=== PATIENT | male | born 1935 | race African-American/Black ===

== ENCOUNTER 2018-04-24 11:55 | Inpatient (IN) | payer MEDICARE ==
[~2018-04-24] VITALS: Ht 170.2 cm; Wt 51.8 kg
[2018-04-24 14:52] LABS: BASOPHILS % 1.5 % (0.0-2.0); HEMATOCRIT. 33.1 % (42.0-52.0); HEMOGLOBIN. 10.6 g/dL (14.0-18.0); LYMPHOCYTES % 17.8 % (20.0-50.0); MEAN CORPUSCULAR HEMOGLOBIN 24.5 pg (28.0-32.0); MEAN CORPUSCULAR VOLUME 76.8 fL (80.0-94.0); MEAN PLATELET VOLUME 8.4 fl (7.4-10.4); MONOCYTES % 6.2 % (2.0-8.0); NEUTROPHILS % 73.5 % (40.0-76.0); PLATELET 404 x1000/uL (130-400); RED CELL DISTRIBUTION WIDTH 14.7 % (11.6-14.6)
[2018-04-24 14:57] LABS: CHLORIDE 111 mEq/L (98-107)
[2018-04-24] MEDS ORDERED: SODIUM CHLORIDE 0.9% 500 ML IV ONE (15:02)
[2018-04-24] MEDS ORDERED: ACETAMINOPHEN 325MG TABLET PO PRN (16:45)
[2018-04-24] MEDS ORDERED: IPRATROPIUM/ALBUTEROL 0.5-3(2.5)MG/3ML NEB INH PRN (16:45)
[2018-04-24] MEDS ORDERED: ONDANSETRON HCL 4MG/2ML INJ IV PRN (16:45)
[2018-04-24] MEDS ORDERED: ENOXAPARIN 40MG/0.4ML SYR SUBCUT SCH (16:45)
[2018-04-24] MEDS ORDERED: MAGNESIUM/ALUMINUM HYDROXIDE/SIMETHICONE 30ML UDC PO PRN (16:45)
[2018-04-24] MEDS ORDERED: DOCUSATE SODIUM 100MG CAPSULE PO PRN (16:45)
[2018-04-24] MEDS ORDERED: TRAMADOL 50MG TABLET PO PRN (16:45)
[2018-04-24] MEDS ORDERED: GUAIFENESIN 200MG/10ML SUGAR FREE UDC PO PRN (16:45)
[2018-04-24] MEDS ORDERED: NITROGLYCERIN 0.4MG TABLET SL SL PRN (16:45)
[2018-04-24 18:17] LABS: VITAMIN B12 SERUM 590 pg/mL (211-911)
[2018-04-24] MEDS: SPIRONOLACTONE 25MG TABLET PO SCH (20:11)
[2018-04-24] MEDS: FUROSEMIDE 40MG/4ML VIAL IVP SCH (20:11)
[2018-04-24] MEDS: CLONIDINE 0.1MG TABLET PO PRN (20:12)
[2018-04-24] MEDS: LISINOPRIL 20MG TABLET PO SCH (20:12)
[2018-04-24] MEDS: FAMOTIDINE 20MG TABLET PO SCH (20:12)
[2018-04-24 22:25] LABS: CREATINE KINASE 56 IU/L (39-308)
[2018-04-24 22:26] LABS: CREATINE KINASE MB FRACTION < 1.0 ng/mL (0.5-3.6)
[2018-04-24 23:45] LABS: *AMPHETAMINES SCREEN URINE NEGATIVE (NEGATIVE); *BARBITURATES SCREEN URINE NEGATIVE (NEGATIVE); *BENZODIAZEPINES SCREEN URINE NEGATIVE (NEGATIVE); *COCAINE SCREEN URINE NEGATIVE (NEGATIVE); METHADONE URINE SCREEN NEGATIVE (NEGATIVE); OPIATES URINE SCREEN NEGATIVE (NEGATIVE)
[2018-04-24 23:46] LABS: CANNABINOID URINE SCREEN NEGATIVE (NEGATIVE); PHENCYCLIDINE URINE SCREEN NEGATIVE (NEGATIVE)
[2018-04-25] MEDS ORDERED: ZOLPIDEM TARTRATE 5MG TABLET PO PRN (01:03)
[2018-04-25] MEDS: CLONIDINE 0.1MG TABLET PO PRN ×3 (03:48→20:34)
[2018-04-25 07:37] LABS: CREATINE KINASE MB FRACTION 1.6 ng/mL (0.5-3.6)
[2018-04-25] MEDS: ASPIRIN 325MG EC TABLET PO SCH (09:00)
[2018-04-25 09:46] LABS: BASOPHILS % 0.8 % (0.0-2.0); EOSINOPHILS % 0.4 % (0.0-5.0); HEMATOCRIT. 32.5 % (42.0-52.0); HEMOGLOBIN. 10.3 g/dL (14.0-18.0); LYMPHOCYTES % 9.1 % (20.0-50.0); MEAN CORPUSCULAR HEMOGLOBIN 24.5 pg (28.0-32.0); MEAN CORPUSCULAR VOLUME 77.3 fL (80.0-94.0); MEAN PLATELET VOLUME 7.9 fl (7.4-10.4); MONOCYTES % 5.7 % (2.0-8.0); PLATELET 392 x1000/uL (130-400); RED CELL DISTRIBUTION WIDTH 14.9 % (11.6-14.6)
[2018-04-25 09:48] LABS: CHLORIDE 106 mEq/L (98-107)
[2018-04-25 10:05] LABS: INR 1.1; PROTHROMBIN TIME 11.4 sec (9.1-11.1)
[2018-04-25 10:40] LABS: T4 FREE 1.5 ng/dL (0.76-1.46)
[2018-04-25] MEDS ORDERED: IOHEXOL-350 100 ML BOTTLE ONE (11:01)
[2018-04-25] MEDS: FAMOTIDINE 20MG TABLET PO SCH ×2 (12:30→22:22)
[2018-04-25] MEDS ORDERED: POTASSIUM CHLORIDE 20MEQ TABLET SR PO SCH (12:45)
[2018-04-25] MEDS ORDERED: ENOXAPARIN 60MG/0.6ML SYR SUBCUT SCH (14:30)
[2018-04-25] MEDS: FUROSEMIDE 40MG/4ML VIAL IVP SCH ×2 (14:56→20:34)
[2018-04-25 15:05] LABS: CREATINE KINASE MB FRACTION 1.9 ng/mL (0.5-3.6)
[2018-04-25] MEDS: LISINOPRIL 20MG TABLET PO SCH ×2 (20:33→21:00)
[2018-04-25] MEDS: SPIRONOLACTONE 25MG TABLET PO SCH ×2 (20:45→21:00)
[2018-04-25 21:20] VITALS: BP 122/73
[2018-04-25 22:59] LABS: CREATINE KINASE MB FRACTION 2.4 ng/mL (0.5-3.6)
[2018-04-26] VITALS: BP 94/61
[2018-04-26 04:00] VITALS: BP 101/60
[2018-04-26 07:07] LABS: CREATINE KINASE MB FRACTION 2.2 ng/mL (0.5-3.6)
[2018-04-26 08:00] VITALS: BP 105/56
[2018-04-26] MEDS: ASPIRIN 325MG EC TABLET PO SCH (09:00)
[2018-04-26] MEDS: LISINOPRIL 20MG TABLET PO SCH ×2 (09:00→21:00)
[2018-04-26] MEDS: FAMOTIDINE 20MG TABLET PO SCH (09:40)
[2018-04-26] MEDS: SPIRONOLACTONE 25MG TABLET PO SCH (09:41)
[2018-04-26] MEDS: FUROSEMIDE 40MG/4ML VIAL IVP SCH (09:41)
[2018-04-26 10:05] LABS: BASOPHILS % 0.8 % (0.0-2.0); HEMATOCRIT. 27.5 % (42.0-52.0); HEMOGLOBIN. 8.6 g/dL (14.0-18.0); LYMPHOCYTES % 19.3 % (20.0-50.0); MEAN CORPUSCULAR HEMOGLOBIN 24.1 pg (28.0-32.0); MEAN CORPUSCULAR VOLUME 77.2 fL (80.0-94.0); MEAN PLATELET VOLUME 8.2 fl (7.4-10.4); NEUTROPHILS % 69.9 % (40.0-76.0); PLATELET 350 x1000/uL (130-400); RED BLOOD CELL COUNT 3.56 mill/uL (4.7-6.1); RED CELL DISTRIBUTION WIDTH 14.7 % (11.6-14.6)
[2018-04-26 10:10] LABS: CHLORIDE 107 mEq/L (98-107)
[2018-04-26 12:00] VITALS: BP 107/60
[2018-04-26] MEDS ORDERED: ENOXAPARIN 60MG/0.6ML SYR SUBCUT SCH (14:00)
[2018-04-26 16:00] VITALS: BP 84/51
[2018-04-26 20:00] VITALS: BP 116/65
[2018-04-26] MEDS: SODIUM CHLORIDE 0.9% 1,000 ML IV SCH (20:10)
[2018-04-26] MEDS: ENOXAPARIN 60MG/0.6ML SYR SUBCUT SCH (21:13)
[2018-04-27] VITALS (7 sets, daily range): BP systolic 96–195; BP diastolic 58–87
[2018-04-27] MEDS: ASPIRIN 325MG EC TABLET PO SCH (09:15)
[2018-04-27] MEDS: LISINOPRIL 20MG TABLET PO SCH ×2 (09:16→21:29)
[2018-04-27] MEDS: CLONIDINE 0.1MG TABLET PO PRN (09:32)
[2018-04-27] MEDS ORDERED: FINA5TAB11 PO (11:11)
[2018-04-27] MEDS ORDERED: MIRT15TA6 PO (11:11)
[2018-04-27] MEDS ORDERED: SIMV20TA6 PO (11:11)
[2018-04-27] MEDS ORDERED: HYDR-4135 PO (11:11)
[2018-04-27] MEDS ORDERED: AMLO10TA80 PO (11:11)
[2018-04-27] MEDS ORDERED: CLOP75TA15 PO (11:11)
[2018-04-27] MEDS ORDERED: LOSA100T14 PO (11:11)
[2018-04-27] MEDS ORDERED: METO25TA6 PO (11:11)
[2018-04-27 12:02] LABS: EOSINOPHILS % 1.5 % (0.0-5.0); HEMATOCRIT. 24.9 % (42.0-52.0); HEMOGLOBIN. 8.1 g/dL (14.0-18.0); LYMPHOCYTES % 16.8 % (20.0-50.0); MEAN CORPUSCULAR HEMOGLOBIN 24.9 pg (28.0-32.0); MEAN CORPUSCULAR VOLUME 76.5 fL (80.0-94.0); MONOCYTES % 8.2 % (2.0-8.0); NEUTROPHILS % 72.5 % (40.0-76.0); PLATELET 316 x1000/uL (130-400); RED BLOOD CELL COUNT 3.25 mill/uL (4.7-6.1); RED CELL DISTRIBUTION WIDTH 14.5 % (11.6-14.6)
[2018-04-27] MEDS: SODIUM CHLORIDE 0.9% 1,000 ML IV SCH (16:38)
[2018-04-27] MEDS: ENOXAPARIN 60MG/0.6ML SYR SUBCUT SCH (21:30)
[2018-04-28] VITALS (8 sets, daily range): BP systolic 142–190; BP diastolic 7–87
[2018-04-28] MEDS: ASPIRIN 325MG EC TABLET PO SCH (08:36)
[2018-04-28] MEDS: SODIUM CHLORIDE 0.9% 1,000 ML IV SCH (11:29)
[2018-04-28] MEDS: CLONIDINE 0.1MG TABLET PO PRN (16:39)
[2018-04-28] MEDS: ENOXAPARIN 60MG/0.6ML SYR SUBCUT SCH (21:01)
== END 2018-04-28 21:05 | disposition home health service (06) | DRG 299 ==
LOC: ER 11:55 → 7WST 15:56 → EDBEDREQ 16:08 → EDBEDREQTM 16:08 → SUPCPDRO 16:38 → ENRESERV 04-25 20:29
PROVIDERS: ADMIT Internal Medicine; ATTEND Internal Medicine
DX: I82.412 Acute embolism and thrombosis of left femoral vein (principal); I50.33 Acute on chronic diastolic (congestive) heart failure; E87.0 Hyperosmolality and hypernatremia; N17.9 Acute kidney failure, unspecified; I11.0 Hypertensive heart disease with heart failure; R07.89 Other chest pain; R31.9 Hematuria, unspecified; I35.0 Nonrheumatic aortic (valve) stenosis; D64.9 Anemia, unspecified; I25.10 Atherosclerotic heart disease of native coronary artery without angina pectoris; R74.8 Abnormal levels of other serum enzymes; K30 Functional dyspepsia; K59.00 Constipation, unspecified; G47.00 Insomnia, unspecified; Z86.73 Personal history of transient ischemic attack (TIA), and cerebral infarction without residual deficits; Z95.1 Presence of aortocoronary bypass graft
CPT/HCPCS: 36415; 71045; 71275; 76770; 80048; 80061; 80305; 82550; 82553; 82607; 82746; 83036; 83540; 83550; 83880; 84439; 84443; 84484; 85379; 92610; 93005; 93306; 93970; 96361; 96374; 97162; 97167; 97530; 99284; 99285; A6261; J1650; J1940; J7030; Q9967

== ENCOUNTER 2019-04-17 15:47 | Inpatient (IN) | payer MEDICARE, MEDICAID, OTHER ==
[~2019-04-17] VITALS: Ht 165.1 cm; Wt 62.6 kg
[~2019-04-17 15:47] MED LIST: AMLO10TA80 PO; CRAN450T10 MT; DOCU-138 MT; FINA5TAB11 PO; HYDR-4135 PO; LOSA100T32 PO; METO25TA6 PO; MIRT15TA6 PO; ONDA4TAB5 MT; SIMV-43 PO; TOPUD PO
[2019-04-17] MEDS ORDERED: SODIUM CHLORIDE 0.9% 1,000 ML IV ONE (15:55)
[2019-04-17 16:23] LABS: HEMATOCRIT. 23.8 % (42.0-52.0); HEMOGLOBIN. 7.6 g/dL (14.0-18.0); MEAN CORPUSCULAR HEMOGLOBIN 25.1 pg (28.0-32.0); MEAN CORPUSCULAR VOLUME 79.3 fL (80.0-94.0); MEAN PLATELET VOLUME 7.5 fl (7.4-10.4); PLATELET 520 x1000/uL (130-400); RED BLOOD CELL COUNT 3.01 mill/uL (4.7-6.1)
[2019-04-17 16:30] LABS: CHLORIDE 114 mEq/L (98-107)
[2019-04-17 16:31] LABS: INR 1.2; PROTHROMBIN TIME 12.9 sec (9.6-11.0)
[2019-04-17 16:48] LABS: PLATELET ESTIMATE INCREASED
[2019-04-17] MEDS ORDERED: LORAZEPAM 2MG/ML CPJ IV ONE (17:45)
[2019-04-17 18:29] LABS: CLARITY URINE CLOUDY (CLEAR); COLOR URINE YELLOW (YELLOW); KETONES URINE NEGATIVE (NEGATIVE); LEUKOCYTE ESTERASE URINE 3+ (NEGATIVE); NITRITE URINE NEGATIVE (NEGATIVE); OCCULT BLOOD URINE 3+ (NEGATIVE); PROTEIN URINE 2+ (NEGATIVE); SPECIFIC GRAVITY URINE 1.013 (1.005-1.030); UROBILINOGEN URINE 0.2 E.U./dL (0.2-1.0)
[2019-04-17] MEDS ORDERED: VANCOMYCIN 1 G PREMIX 200 ML IV ONE (21:45)
[2019-04-17] MEDS ORDERED: PIPERACILLIN/TAZ 3.375G PREMIX 50 ML IV ONE (21:45)
[2019-04-17] MEDS ORDERED: DOCUSATE SODIUM 100MG CAPSULE PO PRN (23:15)
[2019-04-17] MEDS ORDERED: CEFTRIAXONE 1 G PREMIX 50 ML IV SCH (23:15)
[2019-04-17] MEDS ORDERED: ONDANSETRON HCL 4MG/2ML INJ IV PRN (23:15)
[2019-04-17] MEDS ORDERED: MAGNESIUM/ALUMINUM HYDROXIDE/SIMETHICONE 30ML UDC PO PRN (23:15)
[2019-04-18] VITALS (8 sets, daily range): BP systolic 120–142; BP diastolic 59–75
[2019-04-18] MEDS ORDERED: ACETAMINOPHEN 650MG SUPP PR ONE (00:45)
[2019-04-18] MEDS: DEXT 5%/0.45% NACL 1000ML 1,000 ML IV SCH ×2 (02:36→23:59)
[2019-04-18 07:59] LABS: HEMATOCRIT. 22.2 % (42.0-52.0); HEMOGLOBIN. 7.1 g/dL (14.0-18.0); MEAN CORPUSCULAR HEMOGLOBIN 25.8 pg (28.0-32.0); MEAN CORPUSCULAR VOLUME 80.5 fL (80.0-94.0); MEAN PLATELET VOLUME 8.2 fl (7.4-10.4); PLATELET 443 x1000/uL (130-400); RED BLOOD CELL COUNT 2.76 mill/uL (4.7-6.1); RED CELL DISTRIBUTION WIDTH 17.9 % (11.6-14.6)
[2019-04-18 08:11] LABS: CHLORIDE 115 mEq/L (98-107)
[2019-04-18] MEDS: CEFTRIAXONE 1 G PREMIX 50 ML IV SCH (08:39)
[2019-04-18 09:05] LABS: PLATELET ESTIMATE INCREASED
[2019-04-18] MEDS ORDERED: ACETAMINOPHEN 325MG TABLET PO NR (10:45)
[2019-04-18] MEDS ORDERED: DIPHENHYDRAMINE 50MG/ML VIAL IV PRN (13:30)
[2019-04-18] MEDS: FLUCONAZOLE 100MG TABLET PO SCH (13:36)
[2019-04-18 21:28] LABS: HEMATOCRIT 25.3 % (42.0-52.0); HEMOGLOBIN 8.2 g/dL (14.0-18.0)
[2019-04-18] MEDS: NEOMY SULF/BACITRAC ZN/POLY OINT 28GM TOP SCH (21:37)
[2019-04-18] MEDS: ACETAMINOPHEN 325MG TABLET PO PRN (21:37)
[2019-04-19] VITALS: BP 94/65
[2019-04-19 04:00] VITALS: BP 147/68
[2019-04-19] MEDS: ACETAMINOPHEN 325MG TABLET PO PRN ×2 (04:06→16:24)
[2019-04-19 06:41] LABS: HEMATOCRIT. 24.6 % (42.0-52.0); HEMOGLOBIN. 8.1 g/dL (14.0-18.0); MEAN CORPUSCULAR HEMOGLOBIN 26.3 pg (28.0-32.0); MEAN PLATELET VOLUME 7.7 fl (7.4-10.4); PLATELET 445 x1000/uL (130-400); RED BLOOD CELL COUNT 3.08 mill/uL (4.7-6.1); RED CELL DISTRIBUTION WIDTH 18.3 % (11.6-14.6)
[2019-04-19 06:48] LABS: CHLORIDE 118 mEq/L (98-107)
[2019-04-19 08:00] VITALS: BP 153/82
[2019-04-19] MEDS ORDERED: POTASSIUM CHLORIDE 20MEQ TABLET SR PO NR ×2 (10:30→12:00)
[2019-04-19] MEDS: CEFTRIAXONE 1 G PREMIX 50 ML IV SCH (11:25)
[2019-04-19 12:00] VITALS: BP 129/75
[2019-04-19] MEDS: TRAMADOL 50MG TABLET PO PRN ×2 (12:04→22:31)
[2019-04-19] MEDS: DEXT 5%/0.45% NACL 1000ML 1,000 ML IV SCH (12:05)
[2019-04-19] MEDS: FLUCONAZOLE 100MG TABLET PO SCH (12:06)
[2019-04-19] MEDS ORDERED: MAGNESIUM 2 G PREMIX 50 ML IV NR (12:30)
[2019-04-19] MEDS: NEOMY SULF/BACITRAC ZN/POLY OINT 28GM TOP SCH (12:59)
[2019-04-19 13:36] LABS: PLATELET ESTIMATE INCREASED
[2019-04-19 16:00] VITALS: BP 140/77
[2019-04-19 20:00] VITALS: BP 152/83
[2019-04-20] VITALS: BP 138/76
[2019-04-20 04:00] VITALS: BP 155/92
[2019-04-20] MEDS: TRAMADOL 50MG TABLET PO PRN ×2 (04:34→21:43)
[2019-04-20] MEDS: DEXT 5%/0.45% NACL 1000ML 1,000 ML IV SCH ×2 (06:24→12:17)
[2019-04-20 07:04] LABS: HEMATOCRIT. 25.8 % (42.0-52.0); HEMOGLOBIN. 8.4 g/dL (14.0-18.0); MEAN CORPUSCULAR HEMOGLOBIN 26.4 pg (28.0-32.0); MEAN CORPUSCULAR VOLUME 81.2 fL (80.0-94.0); MEAN PLATELET VOLUME 7.7 fl (7.4-10.4); PLATELET 463 x1000/uL (130-400); RED BLOOD CELL COUNT 3.18 mill/uL (4.7-6.1); RED CELL DISTRIBUTION WIDTH 18.2 % (11.6-14.6)
[2019-04-20 08:00] VITALS: BP 143/72
[2019-04-20] MEDS: NEOMY SULF/BACITRAC ZN/POLY OINT 28GM TOP SCH (09:00)
[2019-04-20] MEDS: CEFTRIAXONE 1 G PREMIX 50 ML IV SCH (09:14)
[2019-04-20] MEDS: FLUCONAZOLE 100MG TABLET PO SCH (09:14)
[2019-04-20] MEDS ORDERED: POTASSIUM CHLORIDE 20MEQ TABLET SR PO NR (10:00)
[2019-04-20 11:13] LABS: PLATELET ESTIMATE INCREASED
[2019-04-20 12:00] VITALS: BP 131/69
[2019-04-20 16:00] VITALS: BP 129/67
[2019-04-20 20:00] VITALS: BP 136/74
[2019-04-21] VITALS: BP 129/76
[2019-04-21] MEDS: DEXT 5%/0.45% NACL 1000ML 1,000 ML IV SCH (00:24)
[2019-04-21 04:00] VITALS: BP 134/80
[2019-04-21 05:44] LABS: BASOPHILS % 1.3 % (0.0-2.0); EOSINOPHILS % 1.2 % (0.0-5.0); HEMATOCRIT. 24.3 % (42.0-52.0); HEMOGLOBIN. 7.9 g/dL (14.0-18.0); LYMPHOCYTES % 9.6 % (20.0-50.0); MEAN CORPUSCULAR HEMOGLOBIN 26.1 pg (28.0-32.0); MEAN CORPUSCULAR VOLUME 80.7 fL (80.0-94.0); MEAN PLATELET VOLUME 7.5 fl (7.4-10.4); NEUTROPHILS % 82.9 % (40.0-76.0); PLATELET 451 x1000/uL (130-400); RED BLOOD CELL COUNT 3.01 mill/uL (4.7-6.1); RED CELL DISTRIBUTION WIDTH 18.5 % (11.6-14.6)
[2019-04-21 06:32] LABS: PHOSPHORUS 2.3 mg/dL (2.5-4.9)
[2019-04-21 08:00] VITALS: BP 152/66
[2019-04-21] MEDS: FLUCONAZOLE 100MG TABLET PO SCH (08:24)
[2019-04-21] MEDS: ACETAMINOPHEN 325MG TABLET PO PRN ×2 (08:24→18:48)
[2019-04-21] MEDS ORDERED: POTASSIUM CHLORIDE 20MEQ/PACKET PO SCH (08:30)
[2019-04-21] MEDS: CEFTRIAXONE 1 G PREMIX 50 ML IV SCH (08:59)
[2019-04-21] MEDS ORDERED: POTASSIUM PHOS,M-BASIC-D-BASIC 15 MMOL in DEXT 5% WATER 245 ML IV SCH (10:00)
[2019-04-21 12:00] VITALS: BP_SYST 168; BP_DIAS 90; BP_DIAS 91
[2019-04-21] MEDS: TRAMADOL 50MG TABLET PO PRN ×2 (12:25→21:47)
[2019-04-21] MEDS: CLONIDINE 0.1MG TABLET PO PRN (13:19)
[2019-04-21 16:00] VITALS: BP 153/85
[2019-04-21] MEDS: NEOMYCIN/BACITRACIN/POLYMYXIN OINT 14GM TOP SCH (18:47)
[2019-04-21 20:00] VITALS: BP 148/91
[2019-04-22] VITALS: BP 134/79
[2019-04-22 04:00] VITALS: BP 156/94
[2019-04-22 06:46] LABS: HEMATOCRIT. 25.2 % (42.0-52.0); HEMOGLOBIN. 8.1 g/dL (14.0-18.0); MEAN CORPUSCULAR HEMOGLOBIN 26.5 pg (28.0-32.0); MEAN CORPUSCULAR VOLUME 82.1 fL (80.0-94.0); MEAN PLATELET VOLUME 7.9 fl (7.4-10.4); PLATELET 447 x1000/uL (130-400); RED BLOOD CELL COUNT 3.07 mill/uL (4.7-6.1); RED CELL DISTRIBUTION WIDTH 18.8 % (11.6-14.6)
[2019-04-22 08:00] VITALS: BP 158/96
[2019-04-22 08:00] LABS: PHOSPHORUS 2.7 mg/dL (2.5-4.9)
[2019-04-22] MEDS: CEFTRIAXONE 1 G PREMIX 50 ML IV SCH (08:33)
[2019-04-22] MEDS: FLUCONAZOLE 100MG TABLET PO SCH (08:33)
[2019-04-22] MEDS: ACETAMINOPHEN 325MG TABLET PO PRN ×2 (08:33→18:08)
[2019-04-22] MEDS: CLONIDINE 0.1MG TABLET PO PRN (08:34)
[2019-04-22] MEDS: NEOMYCIN/BACITRACIN/POLYMYXIN OINT 14GM TOP SCH (08:34)
[2019-04-22] MEDS ORDERED: MAGNESIUM 2 G PREMIX 50 ML IV NR (11:00)
[2019-04-22 12:00] VITALS: BP 131/77
[2019-04-22] MEDS: TRAMADOL 50MG TABLET PO PRN ×2 (12:12→23:02)
[2019-04-22] MEDS: AMLODIPINE 2.5MG TABLET PO SCH (12:12)
[2019-04-22 14:31] LABS: ATYPICAL LYMPHOCYTES 1
[2019-04-22 14:32] LABS: PLATELET ESTIMATE SLIGHTLY INCREASED
[2019-04-22 16:00] VITALS: BP 145/69
[2019-04-22 20:00] VITALS: BP 155/93
[2019-04-23 00:10] VITALS: BP 155/96
[2019-04-23 08:00] VITALS: BP 148/94
[2019-04-23] MEDS: CEFTRIAXONE 1 G PREMIX 50 ML IV SCH (09:11)
[2019-04-23] MEDS: FLUCONAZOLE 100MG TABLET PO SCH (09:12)
[2019-04-23] MEDS: AMLODIPINE 2.5MG TABLET PO SCH (09:12)
[2019-04-23] MEDS: NEOMYCIN/BACITRACIN/POLYMYXIN OINT 14GM TOP SCH (09:12)
[2019-04-23 10:45] LABS: HEMATOCRIT. 25.9 % (42.0-52.0); HEMOGLOBIN. 8.6 g/dL (14.0-18.0); MEAN CORPUSCULAR HEMOGLOBIN 26.7 pg (28.0-32.0); MEAN CORPUSCULAR VOLUME 80.2 fL (80.0-94.0); MEAN PLATELET VOLUME 7.7 fl (7.4-10.4); PLATELET 482 x1000/uL (130-400); RED BLOOD CELL COUNT 3.23 mill/uL (4.7-6.1); RED CELL DISTRIBUTION WIDTH 18.7 % (11.6-14.6)
[2019-04-23] MEDS ORDERED: POTASSIUM CHLORIDE 20MEQ TABLET SR PO NR (11:15)
[2019-04-23 11:39] LABS: ATYPICAL LYMPHOCYTES 1
[2019-04-23 11:40] LABS: PLATELET ESTIMATE SLIGHTLY INCREASED
[2019-04-23 12:00] VITALS: BP 144/101
[2019-04-23] MEDS: CLONIDINE 0.1MG TABLET PO PRN (12:44)
[2019-04-23 16:00] VITALS: BP 151/94
[2019-04-23 19:41] VITALS: BP 144/96
[2019-04-24] MEDS ORDERED: ATENOLOL 25MG TABLET PO SCH (09:00)
[2019-04-24] MEDS ORDERED: AMLODIPINE 5MG TABLET PO SCH (09:00)
== END 2019-04-23 22:48 | DRG 871 ==
LOC: ER 15:47 → 7WST 20:00 → EDBEDREQ 20:12 → EDBEDREQTM 20:12 → ENRESERV 04-18 00:05
PROVIDERS: ADMIT Internal Medicine; ATTEND Internal Medicine
PROC: 30233N1 Transfusion of Nonautologous Red Blood Cells into Peripheral Vein, Percutaneous Approach (ICD-10-PCS; 2019-04-18)
PROC: 02HV33Z Insertion of Infusion Device into Superior Vena Cava, Percutaneous Approach (ICD-10-PCS; principal; 2019-04-21)
PROC: B5181ZA Fluoroscopy of Superior Vena Cava using Low Osmolar Contrast, Guidance (ICD-10-PCS; 2019-04-21)
PROC: B548ZZA Ultrasonography of Superior Vena Cava, Guidance (ICD-10-PCS; 2019-04-21)
DX: A41.51 Sepsis due to Escherichia coli [E. coli] (principal); E43 Unspecified severe protein-calorie malnutrition; G93.41 Metabolic encephalopathy; N17.9 Acute kidney failure, unspecified; D63.8 Anemia in other chronic diseases classified elsewhere; E78.5 Hyperlipidemia, unspecified; F03.90 Unspecified dementia, unspecified severity, without behavioral disturbance, psychotic disturbance, mood disturbance, and anxiety; I12.9 Hypertensive chronic kidney disease with stage 1 through stage 4 chronic kidney disease, or unspecified chronic kidney disease; I25.10 Atherosclerotic heart disease of native coronary artery without angina pectoris; I48.91 Unspecified atrial fibrillation; L97.529 Non-pressure chronic ulcer of other part of left foot with unspecified severity; M20.40 Other hammer toe(s) (acquired), unspecified foot; M21.171 Varus deformity, not elsewhere classified, right ankle; N18.9 Chronic kidney disease, unspecified; N40.0 Benign prostatic hyperplasia without lower urinary tract symptoms; L89.520 Pressure ulcer of left ankle, unstageable; L89.892 Pressure ulcer of other site, stage 2; D47.3 Essential (hemorrhagic) thrombocythemia; B96.20 Unspecified Escherichia coli [E. coli] as the cause of diseases classified elsewhere; E78.00 Pure hypercholesterolemia, unspecified; E87.6 Hypokalemia; I35.0 Nonrheumatic aortic (valve) stenosis; R62.7 Adult failure to thrive; Z68.23 Body mass index [BMI] 23.0-23.9, adult; Z74.01 Bed confinement status; Z86.73 Personal history of transient ischemic attack (TIA), and cerebral infarction without residual deficits; Z79.899 Other long term (current) drug therapy
CPT/HCPCS: 36415; 36573; 71045; 76937; 80048; 80053; 81003; 83735; 84100; 84134; 85014; 85018; 85025; 86850; 86900; 86920; 87077; 87186; 87493; 92610; 93005; 93970; 99291; C1725; C1769; J0696; J1200; J2060; J2543; J3370; J3475; J3490; J7030; J7060; P9016